=== PATIENT | female | born 1980 | race American Indian/Alaskan Native ===

== ENCOUNTER 2025-07-04 06:11 | Day surgery (SDC) | payer BC ==
[2025-07-04] MEDS ORDERED: Lactated Ringers 1,000 ML IV ONE (06:12)
[2025-07-04] MEDS ORDERED: Propofol 200 MG/20 ML SDV IV ONE (06:12)
[2025-07-04] MEDS: Lactated Ringers 1,000 ML IV SCH (06:55)
[2025-07-04] MEDS ORDERED: Propofol 200 MG/20 ML SDV ONE (09:39)
== END 2025-07-04 08:46 | disposition home or self-care (01) ==
LOC: DL.ENDO 06:11
PROVIDERS: ATTEND Internal Medicine Gastroenterology
DX: Z12.11 Encounter for screening for malignant neoplasm of colon (principal); D12.4 Benign neoplasm of descending colon; K64.4 Residual hemorrhoidal skin tags; E66.9 Obesity, unspecified; Z68.35 Body mass index [BMI] 35.0-35.9, adult; Z86.0100 Personal history of colon polyps, unspecified
CPT/HCPCS: 00811; 45385; 81025; J2704; J7120